=== PATIENT | male | born 1955 | race Caucasian/White ===

== ENCOUNTER → 2016-09-24 | Outpatient (CLI) | payer MEDICARE ==
[~2016-09-24] MED LIST: ACIDOPHILUS W/P1 CAP PO; AMARYL2 MG PO; AMLODIPINE10 MG PO; ASPIRIN ENTERIC81 M1 PO; ATORVASTATIN CA80 M1 PO; AUGMENTIN XR 101 TE2 PO; CEFADROXIL500 M1 PO; CEFTRIAXONE1 GM IJ; CIPROFLOXACIN500 M4 PO; DECADRON4 M1 PO; FLOMAX0.4 MG PO; FLUCONAZOLE100 MG PO; FOLIC ACID1 MG PO; GABAPENTIN100 M2 PO; GLUCOPHAGE1000 MG PO; GLYBURIDE5 MG PO; HUMALOG100 U/ML SC; HYDROCORTISONE30 G2 T; HYDROXYZINE HCL10 MG PO; LANTUS100 U/ML SC; LIPITOR80 MG PO; LISINOPRIL10 M1 PO; Lipitor PO; METFORMIN1000 MG PO; VIBRAMYCIN100 MG PO; VITAMIN B-11 TAB PO; VITAMIN D50000 I3 PO
[2016-09-24 12:46] LABS: ALBUMIN 3.7 gm/dl (3.1-4.5); ALKALINE PHOSPHATASE 63 U/L (45-117); BILIRUBIN, DIRECT < 0.1 mg/dL (0.0-0.2); BUN 22 mg/dl (7-24); CARBON DIOXIDE 28 mmol/L (21-32); CHLORIDE 100 mmol/L (98-107); EST GLOM FILT AFRICAN AMERICAN > 60 ml/min; GLUCOSE 96 mg/dL (65-99); POTASSIUM 4.6 mmol/L (3.5-5.1); SGOT/AST 13 IU/L (3-35); SGPT/ALT 24 U/L (12-78); SODIUM 138 mmol/L (136-145); TOTAL PROTEIN 8.3 gm/dL (6.4-8.2)
[2016-09-24 12:47] LABS: BILIRUBIN, TOTAL 0.3 mg/dl (0.2-1.0)
[2016-09-24 12:51] LABS: HEMOGLOBIN A1c 9.4 % (4.8-5.6)
== END | disposition home or self-care (01) ==
LOC: LAB 11:44
PROVIDERS: Family Medicine
DX: E11.9 Type 2 diabetes mellitus without complications (principal)

== ENCOUNTER → 2016-12-30 | Outpatient (CLI) | payer MEDICARE ==
[2016-12-30 11:47] LABS: HEMATOCRIT 39.8 % (42.0-52.0); HEMOGLOBIN 13.2 g/dl (14.0-18.0); MEAN CELL VOLUME 85.8 fl (80.0-94.0); MEAN CORPUSCULAR HGB 28.4 pg (27.0-31.0); MEAN CORPUSCULAR HGB CONC 33.2 g/dl (33.0-37.0); MEAN PLATELET VOLUME 9.1 fl (9.6-12.3); PLATELET COUNT AUTOMATED 357 10*3/uL (130-400); RED BLOOD COUNT 4.64 10*6/uL (4.50-5.90); RED CELL DISTRI WIDTH 12.7 % (0-14.5); WHITE BLOOD COUNT 19.5 10*3/uL (4.8-10.8)
[2016-12-30 12:06] LABS: BASOPHIL # 0.2 10*3/uL (0-0.1); BASOPHILS 1 % (0-1); EOSINOPHIL # 0.2 10*3/uL (0-0.4); EOSINOPHILS 1 % (1-4); LYMPHOCYTE # 10.5 10*3/uL (1.3-4.4); MONOCYTE # 0.6 10*3/uL (0.1-1.0); NEUTROPHILS 41 % (47-73); TOTAL CELLS COUNTED 100 #CELLS
[2016-12-30 12:07] LABS: OVALOCYTES FEW; PLATELET SUFFICIENCY NORMAL (NORMAL); ROULEAUX MODERATE
== END | disposition home or self-care (01) ==
LOC: LAB 11:26
PROVIDERS: Family Medicine
DX: L03.114 Cellulitis of left upper limb (principal)

== ENCOUNTER 2017-03-01 12:59 | Inpatient (IN) | payer MEDICARE ==
[~2017-03-01] VITALS: Ht 175.3 cm; Wt 104.8 kg
[2017-03-01] VITALS (9 sets, daily range): BP systolic 143–185; BP diastolic 74–102
[2017-03-01 13:27] LABS: HEMATOCRIT 37.4 % (42.0-52.0); HEMOGLOBIN 12.6 g/dl (14.0-18.0); MEAN CELL VOLUME 85.2 fl (80.0-94.0); MEAN CORPUSCULAR HGB 28.7 pg (27.0-31.0); MEAN CORPUSCULAR HGB CONC 33.7 g/dl (33.0-37.0); MEAN PLATELET VOLUME 9.4 fl (9.6-12.3); PLATELET COUNT AUTOMATED 294 10*3/uL (130-400); RED BLOOD COUNT 4.39 10*6/uL (4.50-5.90); RED CELL DISTRI WIDTH 13.3 % (0-14.5); WHITE BLOOD COUNT 17.7 10*3/uL (4.8-10.8)
[2017-03-01 13:36] LABS: ACT PARTIAL THROMBO TIME 28.3 SECONDS (20.8-31.5); INTERNATIONAL NORM RATIO 1.3 (2.0-3.5)
[2017-03-01 13:45] LABS: ALKALINE PHOSPHATASE 101 U/L (45-117); BUN 17 mg/dl (7-24); CHLORIDE 95 mmol/L (98-107); CPK 45 U/L (39-308); CREATININE 1.31 mg/dL (0.70-1.30); MAGNESIUM 2.1 mg/dL (1.5-2.1); POTASSIUM 4.5 mmol/L (3.5-5.1); SGOT/AST 14 IU/L (3-35); SGPT/ALT 18 U/L (12-78); SODIUM 132 mmol/L (136-145); TOTAL PROTEIN 9.2 gm/dL (6.4-8.2)
[2017-03-01 13:46] LABS: PLATELET SUFFICIENCY NORMAL (NORMAL); ROULEAUX MODERATE; TOTAL CELLS COUNTED 100 #CELLS
[2017-03-01 13:48] LABS: POLYCHROMASIA SLIGHT; TOXIC GRANULATION SLIGHT; TROPONIN I < 0.015 ng/ml (<0.045)
[2017-03-01 14:06] LABS: BILIRUBIN NEGATIVE (NEGATIVE); BLOOD 3+ (NEGATIVE); CLARITY CLOUDY (CLEAR); COLOR YELLOW (YELLOW); GLUCOSE 3+ (NEGATIVE); KETONE 1+ (NEGATIVE); LEUKO ESTERASE 2+ (NEGATIVE); NITRITE POSITIVE (NEGATIVE); SPECIFIC GRAVITY >= 1.030 (1.005-1.030)
[2017-03-01 14:18] LABS: RBC TNTC rbc/hpf (0-2)
--- NOTE | 2017-03-01 14:20 | NUR ---
OFFERS NO COMPLAINTS. TV PUT IN REACH REQUESTED.
--- NOTE | 2017-03-01 16:07 | NUR ---
SUPRAPUBIC CATH CHANGED BY DR KOENIG. SAVANNAH YANG RN
--- NOTE | 2017-03-01 16:30 | NUR ---
A 61, admitted to , under the services of MAXX Bello DO with a diagnosis of WEAKNESS,UTI. Chief complaint is FOUND AT HOME IN CHAIR, UNABLE TO AMBULATE. Patient arrived via ambulance from ER. Monitor applied. Initial assessment completed. Vital signs taken and recorded. MAXX BELLO DO notified of admission to the unit. Orders received. See assessment for past medical history, medications and allergies. Patient and/or family oriented to unit. [facility] visitation policy reviewed. Clothing/patient valuable form completed. SHIRAZ GILBERT
[2017-03-01] MEDS ORDERED: GLIPIZIDE5 MG PO (17:46)
[2017-03-01] MEDS ORDERED: LIPITOR80 MG PO (17:47)
--- NOTE | 2017-03-01 17:48 | NUR ---
MED REC UP TO DATE FROM [facility]
--- NOTE | 2017-03-01 18:01 | NUR ---
MEDICATED WITH MORPHINE 2MG IV FOR COMPLAINTS OF LEFT LEG PAIN. RATES PAIN AN 8 ON A PAIN SCALE OF 1-10.
--- NOTE | 2017-03-01 18:47 | NUR ---
CALLING OUT REQUESTING MORE PAIN MED'S. VOICES THAT MORPHINE WAS NOT EFFECTIVE. DR. DIEGO NOTIFIED AND NO NEW ORDERS RECEIVED.
--- NOTE | 2017-03-01 20:05 | NUR ---
MEDICATED WITH NORCO FOR C/O LEFT LEG PAIN.
--- NOTE | 2017-03-01 22:23 | NUR ---
MEDICATED WITH MS SLOW IV PUSH FOR C/O LEFT KNEE PAIN RATED A 7/10.
[2017-03-02] VITALS: BP 153/74
--- NOTE | 2017-03-02 00:24 | NUR ---
DR. DUONG NOTIFIED OF PT LLE RED/WARM/EDEMA/PAIN/NUMBNESS. N.O. RCVD TO OBTAIN US OF LLE TO R/O DVT.
--- NOTE | 2017-03-02 01:00 | NUR ---
PT RESTING QUIETLY IN BED. PAIN MED EFFECTIVE. NO FURTHER C/O VOICED.
--- NOTE | 2017-03-02 04:21 | NUR ---
24 HR chart check completed.
[2017-03-02 06:27] LABS: HEMATOCRIT 32.5 % (42.0-52.0); HEMOGLOBIN 10.9 g/dl (14.0-18.0); MEAN CELL VOLUME 84.9 fl (80.0-94.0); MEAN CORPUSCULAR HGB 28.5 pg (27.0-31.0); MEAN CORPUSCULAR HGB CONC 33.5 g/dl (33.0-37.0); MEAN PLATELET VOLUME 9.7 fl (9.6-12.3); PLATELET COUNT AUTOMATED 255 10*3/uL (130-400); RED BLOOD COUNT 3.83 10*6/uL (4.50-5.90); RED CELL DISTRI WIDTH 13.4 % (0-14.5); WHITE BLOOD COUNT 15.6 10*3/uL (4.8-10.8)
[2017-03-02 06:49] LABS: ALBUMIN 2.4 gm/dl (3.1-4.5); ALKALINE PHOSPHATASE 77 U/L (45-117); BUN 12 mg/dl (7-24); CHLORIDE 100 mmol/L (98-107); CHOLESTEROL 100 mg/dL (<200); CREATININE 0.82 mg/dL (0.70-1.30); FREE T4 1.34 ng/dl (0.76-1.46); HDL CHOLESTEROL 33 mg/dl (40-60); LDL CHOLESTEROL 56 mg/dL (9-159); MAGNESIUM 1.9 mg/dL (1.5-2.1); PHOSPHOROUS 2.5 mg/dL (2.5-4.9); SGOT/AST 10 IU/L (3-35); SGPT/ALT 12 U/L (12-78); SODIUM 133 mmol/L (136-145); TOTAL PROTEIN 7.5 gm/dL (6.4-8.2); TRIGLYCERIDES 55 mg/dl (<150); VLDL CHOLESTEROL 11 mg/dL (6-40)
--- NOTE | 2017-03-02 06:52 | NUR ---
DR. DIEGO NOTIFIED OF LEFT KNEE PAIN/SWELLING. N.O. VD FOR 3 VIEW XRAY OF LEFT KNEE.
[2017-03-02 06:54] LABS: BASOPHILS 2 % (0-1); PLATELET SUFFICIENCY NORMAL (NORMAL); THYROID STIM HORMONE (HS) 0.977 uIU/ml (0.358-4.75); TOTAL CELLS COUNTED 100 #CELLS
[2017-03-02 08:00] VITALS: BP 107/67
[2017-03-02 08:07] LABS: VITAMIN D, 25-HYDROXY 24.2 ng/mL (30-100)
--- NOTE | 2017-03-02 09:15 | NUR ---
MORPHINE GIVEN FOR C/O LT KNEE PAIN. RATES 10/10 ON PAIN SCALE. WILL MONITOR.
--- NOTE | 2017-03-02 09:30 | NUR ---
Body Sander in to talk to patient. Patient states lives at home with alone. There are few steps in the home. Physician: silvia gutierrez [facility] [place] [facility] Patient's level of ADLs: INDEPENDENT Patient has working utilities: all working DME: cane Follow-up physician's appointment after d/c: will be made by hospitalist nurse director upon discharge Does patient want to access PORTAL?: no Discharge plan discussed with patient, patient lives at home alone, occasionally uses a cane for ambulation, was independent in adls, but is having some difficulty with ambulation and adls at present time, discussed a short term halfway for rehab prior to going back home and patient was receptive, environmental restoration planner has visited with patient and he is thinking about which facility he wants to go to, case management will follow. BARAK CONLEY
--- NOTE | 2017-03-02 09:31 | NUR ---
Received order for skilled facility rehab. senior customer service representative in to talk to patient and provide list of facilities. Patient stated he wanted to talk to his ex prior to making the decision of which facility. Will follow up later this afternoon.
--- NOTE | 2017-03-02 10:15 | NUR ---
PHYSICAL THERAPY PAtient evaluated on 4, full evaluation to follow. Continue with PT as per plan of care with fall, severe pain left LE, Bakers cycst left LE and acute debility. Will require SNF for severe pain and impaired mobility prior to returning to home alone at [facility]. PAtient is moderate complexity via chart review, tests and evaluation: 21984. Thank you for this referral. Balbina Graham,PT
--- NOTE | 2017-03-02 10:30 | NUR ---
MORPHINE EFFECTIVE PER PT.
--- NOTE | 2017-03-02 11:25 | NUR ---
Patient has requested to be referred to the [facility]. Will contact C[facility] and fax referral.
[2017-03-02 12:00] VITALS: BP 169/94
--- NOTE | 2017-03-02 12:58 | NUR ---
PHYSICAL THERAPY Mr Yuen was seen this PM 1:1 for his physical therapy session. Pt having C/O severy left knee pain, bakers cycst, and having acute debility. With just slight touch, Pt having 10/10 pain and ask if i could come back tomorrow due to the pain he was having. Really did not get anything done due to Pt's left knee pain, will come back tomorrow. KILLIAN BRITO SHERIFFS.
[2017-03-02 16:00] VITALS: BP 146/77
[2017-03-02 20:00] VITALS: BP 136/80
--- NOTE | 2017-03-02 22:41 | NUR ---
PT. RECIEVED A PRN NORCO FOR PAIN IN THE LEFT KNEE.
--- NOTE | 2017-03-02 23:11 | NUR ---
PT. DENIES ANY PAIN AT THIS TIME.
--- NOTE | 2017-03-02 23:15 | NUR ---
PRN RESTORIL GIVEN FOR INSOMNIA.
--- NOTE | 2017-03-02 23:45 | NUR ---
PT. RESTING COMFORTABLY.
[2017-03-03] VITALS: BP 137/76
--- NOTE | 2017-03-03 01:30 | NUR ---
PT WOKE UP AT THIS TIME, SOMEWHAT CONFUSED. PATIENT REORIENTED AT THIS TIME. WAS UNSURE OF PLACE. STATED THAT HE FEELS LIKE HE WAS "DRUGGED". THIS NURSE STATED THAT HE REQUESTED A SLEEPING PILL LAST NIGHT. HE STATED THAT HE FORGOT WHERE HE WAS FOR A MINUTE. PATIENT ACCIDENTALLY TOOK IV OUT IN SLEEP. #22 GAUGE RESTARTED IN THE RIGHT AC. IV FUIDS CONTINUE TO INFUSE. PATIENT STATES HE IS GOING TO GO BACK TO SLEEPING. CALL LIGHT WITHIN REACH, WILL MONITOR
--- NOTE | 2017-03-03 04:04 | NUR ---
PRN TYLENOL 650MG GIVEN TO PT. FOR MILD PAIN IN LEFT KNEE RATING PAIN A 5 OUT OF 10.
[2017-03-03 05:59] LABS: HEMATOCRIT 33.1 % (42.0-52.0); HEMOGLOBIN 11.1 g/dl (14.0-18.0); MEAN CELL VOLUME 84.9 fl (80.0-94.0); MEAN CORPUSCULAR HGB 28.5 pg (27.0-31.0); MEAN CORPUSCULAR HGB CONC 33.5 g/dl (33.0-37.0); MEAN PLATELET VOLUME 9.7 fl (9.6-12.3); PLATELET COUNT AUTOMATED 264 10*3/uL (130-400); RED CELL DISTRI WIDTH 13.5 % (0-14.5); WHITE BLOOD COUNT 15.9 10*3/uL (4.8-10.8)
[2017-03-03 06:26] LABS: BUN 10 mg/dl (7-24); CHLORIDE 100 mmol/L (98-107); CREATININE 0.77 mg/dL (0.70-1.30); POTASSIUM 3.6 mmol/L (3.5-5.1); SODIUM 133 mmol/L (136-145)
[2017-03-03 06:54] LABS: PLATELET SUFFICIENCY NORMAL (NORMAL); ROULEAUX SLIGHT; TOTAL CELLS COUNTED 100 #CELLS
[2017-03-03 08:00] VITALS: BP 144/86
--- NOTE | 2017-03-03 09:00 | NUR ---
estate planner is working on discharge arrangements with patient
--- NOTE | 2017-03-03 09:55 | NUR ---
PT REQUESTING PRN PO NORCO FOR COMPLAINTS OF LEFT KNEE PAIN, RATING PAIN AT 9/10. WILL MONITOR EFFECTIVENESS.
--- NOTE | 2017-03-03 11:00 | NUR ---
PT STATES NORCO INEFFECTIVE
--- NOTE | 2017-03-03 11:21 | NUR ---
PT BS 310
--- NOTE | 2017-03-03 11:21 | NUR ---
PT GIVEN PRN IV MORPHINE FOR COMPLAINTS OF LEFT KNEE PAIN, RATING PAIN AT 9/10. WILL MONITOR EFFECTIVENESS.
[2017-03-03 12:00] VITALS: BP 149/92
--- NOTE | 2017-03-03 12:00 | NUR ---
PT STATES MORPHINE EFFECTIVE FOR PAIN
--- NOTE | 2017-03-03 12:38 | NUR ---
PHYSICAL THERAPY For C/O left knee pain Pt had tylenol 650 mg around 4:00 AM, Then later in the morning IV morphine. Pt seen this PM 1:1 for his therapy session. Pt had very slow, working left knee into extension and ending up around -11,12 d extension is all i could get at this time. Dr Aldana in at this time and going to drain fluid from Pt left knee. KILLIAN BRITO RAILROAD BRAKE OPERATOR.
--- NOTE | 2017-03-03 12:55 | NUR ---
DR DORANTES AT BEDSIDE TO PERFORM ASPIRATION TO LEFT KNEE. PATIENT TOLERATED PROCEDURE. SYNOVIAL FLUIDS SENT TO LAB, 70CC REMOVED.
[2017-03-03 14:31] LABS: BF LYMPHOCYTES 11 %; BF MONOCYTES 2 %; BF NEUTROPHILS 87 %
[2017-03-03 14:34] LABS: BODY FLUID WBC 18425 /uL
--- NOTE | 2017-03-03 14:50 | NUR ---
Shift chart check completed.
[2017-03-03 16:00] VITALS: BP 137/79
--- NOTE | 2017-03-03 19:22 | NUR ---
MEDICATED WITH NORCO FOR LEFT KNEE PAIN. 01/12 NOW
[2017-03-03 20:00] VITALS: BP 158/94
--- NOTE | 2017-03-03 20:00 | NUR ---
ASSUMED CARE OF PATIENT. ASSESSMENT COMPLETE. RESTING IN BED. VISITORS AT BEDSIDE. CALL LIGHT IN REACH. WILL CONTINUE TO MONITOR.
--- NOTE | 2017-03-03 22:51 | NUR ---
DAILY MED REC UNABLE OT BE COMPLETED PATIENT DOES NOT KNOW ALL OF HIS HOME MEDICATIONS
--- NOTE | 2017-03-03 23:06 | NUR ---
MEDICATED WITH PRN MORPHINE FOR C/O LT KNEE PAIN 03/15
[2017-03-04] VITALS: BP 136/81
--- NOTE | 2017-03-04 | NUR ---
PER PATIENT, EARLIER MORPHINE EFFECTIVE
--- NOTE | 2017-03-04 01:58 | NUR ---
MEDICATED WITH PRN NORCO FOR C/O LEFT KNEE PAIN. RATES 02/12
--- NOTE | 2017-03-04 03:00 | NUR ---
EARLIER NORCO APPEARS TO BE EFFECTIVE, PT SLEEPING. NO DISTRESS NOTED. CALL LIGHT IN REACH. WILL CONTINUE TO MONITOR.
--- NOTE | 2017-03-04 05:04 | NUR ---
MEDICATED WITH PRN MORPHINE FOR C/O LEFT KNEE PAIN. RATES 03/15
--- NOTE | 2017-03-04 06:42 | NUR ---
Shift chart check completed.
[2017-03-04 07:03] LABS: HEMATOCRIT 32.5 % (42.0-52.0); HEMOGLOBIN 10.9 g/dl (14.0-18.0); MEAN CORPUSCULAR HGB 28.8 pg (27.0-31.0); MEAN CORPUSCULAR HGB CONC 33.5 g/dl (33.0-37.0); MEAN PLATELET VOLUME 9.7 fl (9.6-12.3); PLATELET COUNT AUTOMATED 280 10*3/uL (130-400); RED BLOOD COUNT 3.78 10*6/uL (4.50-5.90); RED CELL DISTRI WIDTH 13.8 % (0-14.5)
[2017-03-04 07:32] LABS: CHLORIDE 99 mmol/L (98-107); POTASSIUM 3.8 mmol/L (3.5-5.1); SODIUM 134 mmol/L (136-145)
[2017-03-04 07:34] LABS: PLASMA CELL 1 % (0-0); TOTAL CELLS COUNTED 100 #CELLS
[2017-03-04 07:35] LABS: PLATELET SUFFICIENCY NORMAL (NORMAL); ROULEAUX MODERATE
[2017-03-04 07:45] LABS: BUN 10 mg/dl (7-24); CREATININE 0.86 mg/dL (0.70-1.30)
--- NOTE | 2017-03-04 07:50 | NUR ---
[place] given for c/o severe pain to left knee. 10/[address] Aldana for Cortisone injection. IV to RAN secure & patent. Suprapubic catheter secure. Voids in urinal normally. Follows up for suprapubic catheter around May. Edema to BLL L>R.
[2017-03-04 08:00] VITALS: BP 122/78
--- NOTE | 2017-03-04 09:44 | NUR ---
PHYSICAL THERAPY Jerry seen this AM 1:1 for his physical therapy treatment. Pt was medicated with morphine this AM, C/O left knee pain 03/15. Start with rom to pt's pain tolerance to left LE, knee working knee extension to pt's pain tolerance taking 20 min to get around -9d extension. Followed by transfer supine/sit very slow with MOD A X 1, up into sitting balance. Followed by sit/stand and up on wheeled walker standing balance MAX A X 1, and stand to tolerance, then back supine with pain. Pt with call light resting, treatment time 35 min. KILLIAN BRITO RECORDING STUDIO INTERN.
--- NOTE | 2017-03-04 09:56 | NUR ---
PAIN IMPROVED BUT STILL THERE NOW 5-12/13. PT MOVING ABOUT IN BED INDEPENDENTLY
[2017-03-04 12:00] VITALS: BP 118/65
--- NOTE | 2017-03-04 12:05 | NUR ---
MORPHINE GIVEN AT 1145. BED CHANGED AFTER MUCH ENCOURAGEMENT. DR DORANTES ARRIVED AND INJECTION GIVEN. PT TOLERATED WELL BUT WAS ALREADY IN PAIN. PATIENT TOLD BY DR DORANTES THAT THE KNEE HAS NO INFECTION BUT IS POSITIVE FOR GOUT
[2017-03-04 13:09] LABS: ACID FAST SMEAR Negative (.); ACID FAST SPEC PROCESSING Concentration (.)
--- NOTE | 2017-03-04 14:02 | NUR ---
Occupational Therapy evaluation offered this date to patient. He was sitting up in bed eating lunch. He c/o pain and indicated that "he had several shots in his knee "today and he was not getting out of bed. OTR will recheck at a later date. Thank you for this referral. Love Broussard OTR/ace
[2017-03-04 14:16] LABS: HEMATOCRIT 36.4 % (42.0-52.0); HEMOGLOBIN 12.1 g/dl (14.0-18.0); MEAN CELL VOLUME 85.6 fl (80.0-94.0); MEAN CORPUSCULAR HGB 28.5 pg (27.0-31.0); MEAN CORPUSCULAR HGB CONC 33.2 g/dl (33.0-37.0); MEAN PLATELET VOLUME 9.6 fl (9.6-12.3); PLATELET COUNT AUTOMATED 305 10*3/uL (130-400); RED BLOOD COUNT 4.25 10*6/uL (4.50-5.90); RED CELL DISTRI WIDTH 13.6 % (0-14.5); WHITE BLOOD COUNT 20.3 10*3/uL (4.8-10.8)
[2017-03-04 14:58] LABS: PLASMA CELL 1 % (0-0); PLATELET SUFFICIENCY NORMAL (NORMAL); ROULEAUX MODERATE; TOTAL CELLS COUNTED 100 #CELLS
[2017-03-04 16:00] VITALS: BP 148/87
--- NOTE | 2017-03-04 19:00 | NUR ---
PT. SLEEPING UPON ENTERING ROOM, GLASSES ON BEDSIDE TABLE. ALERT AND ORIENTED UPON AWAKENING. LUNG SOUNDS DIMINISHED AND CLEAR ON ROOM AIR. S1S2 HEART SOUNDS, NSR @ 99 BPM, PPP, NO EDEMA. BOWEL SOUNDS NORMOACTIVE X 4 QUADS. AT BEDSIDE. DRESSING TO LEFT KNEE CLEAN, DRY AND INTACT AT THIS TIME. PT. DENIES PAIN AT THIS TIME. CALL LIGHT WITHIN REACH, BED IN LOWEST POSITION, WHEELS LOCKED.
--- NOTE | 2017-03-04 20:35 | NUR ---
PT. SO APPROACHED THE DESK STATING THAT THE PT. WOKE UP AND WAS CONFUSED AND NOT SURE WHERE HE WAS AT. PT. WAS ASSESSED AND WAS ABLE TO STATE WHERE HE WAS AT, THE DATE, HIS NAME, AND THE CURRENT PRESIDENT. CALL LIGHT WITHIN REACH, BED IN LOWEST POSITION, AND WHEELS LOCKED.
--- NOTE | 2017-03-04 21:51 | NUR ---
PT. GIVEN NORCO 325MG FOR GENERALIZED PAIN OF 6/10 ON 0-10 SCALE. CALL LIGHT WITHIN REACH, BED IN LOWEST POSITION, WHEELS LOCKED.
[2017-03-05] VITALS: BP 131/56
--- NOTE | 2017-03-05 | NUR ---
ASSUMED CARE OF PATIENT. ASSESSMENT COMPLETE. RESTING IN BED. DENIES FURTHER NEEDS AT THIS TIME. CALL LIGHT IN REACH. WILL CONTINUE TO MONITOR.
--- NOTE | 2017-03-05 02:00 | NUR ---
SLEEPING. RESP EASY AND NONLABORED ON ROOM AIR. NO DISTRESS NOTED. CM INTACT. CALL LIGHT IN REACH. WILL CONTINUE TO MONITOR.
[2017-03-05 05:46] LABS: HEMATOCRIT 35.5 % (42.0-52.0); HEMOGLOBIN 11.8 g/dl (14.0-18.0); MEAN CELL VOLUME 84.1 fl (80.0-94.0); MEAN CORPUSCULAR HGB CONC 33.2 g/dl (33.0-37.0); MEAN PLATELET VOLUME 9.6 fl (9.6-12.3); PLATELET COUNT AUTOMATED 277 10*3/uL (130-400); RED BLOOD COUNT 4.22 10*6/uL (4.50-5.90); RED CELL DISTRI WIDTH 13.6 % (0-14.5); WHITE BLOOD COUNT 20.3 10*3/uL (4.8-10.8)
[2017-03-05 05:56] LABS: ALKALINE PHOSPHATASE 82 U/L (45-117); BUN 16 mg/dl (7-24); CHLORIDE 99 mmol/L (98-107); POTASSIUM 4.1 mmol/L (3.5-5.1); SGOT/AST 13 IU/L (3-35); SGPT/ALT 15 U/L (12-78); SODIUM 135 mmol/L (136-145); TOTAL PROTEIN 8.1 gm/dL (6.4-8.2)
[2017-03-05 06:09] LABS: TOTAL PROTEIN, SERUM 7.6 g/dL (6.0-8.5)
[2017-03-05 06:14] LABS: TOTAL CELLS COUNTED 100 #CELLS
[2017-03-05 06:15] LABS: PLATELET SUFFICIENCY NORMAL (NORMAL); ROULEAUX MODERATE; TOXIC GRANULATION MODERATE
--- NOTE | 2017-03-05 06:35 | NUR ---
MEDICATED WITH PRN NORCO FOR C/O LT KNEE PAIN. RATES 04/14
[2017-03-05 08:00] VITALS: BP 150/88
--- NOTE | 2017-03-05 10:31 | NUR ---
patient will be going to [facility] today, digital media planner will make arrangements
--- NOTE | 2017-03-05 11:08 | NUR ---
PHYSICAL THERAPY Jerry seen this AM 1:1 for his therapy session and having some improvement in pain and rom left LE, knee. Start with rom to left LE knee, knee extension first, into flexion, SLR with improvement in knee extension to - 7. Followed by transfer supine/sit very slow with MOD A X 1, up into sitting, sitting balance. Followed by sit/stand up on wheeled walker for standing balance MOD A X 1, and said that standing really feels good to stand. Stand to tolerance, then back sitting, followed by back supine MOD A X 2, and working act ankle pumps, quad sets. Treatment time 30 min. KILLIAN BRITO ANALYSIS LEAD.
[2017-03-05] MEDS ORDERED: ALLOPURINOL100 MG PO (11:21)
[2017-03-05] MEDS ORDERED: LISINOPRIL10 M1 PO (11:21)
[2017-03-05] MEDS ORDERED: VITAMIN D-32000 UNI1 PO (11:22)
[2017-03-05] MEDS ORDERED: TETRACYCLINE H500 MG PO (11:26)
[2017-03-05] MEDS ORDERED: LEVOFLOXACIN500 MG PO (11:26)
[2017-03-05 12:00] VITALS: BP 126/80
--- NOTE | 2017-03-05 12:02 | NUR ---
Patient being discharged to [facility], transportation scheduled for 3:30 PM with [facility]. NH, nursing and family notified.
--- NOTE | 2017-03-05 14:00 | NUR ---
PHYSICAL THERAPY CO-SIGN I approve of the Phyical Therapy notes written above. BARBARA TURNER PT
--- NOTE | 2017-03-05 15:09 | NUR ---
REPORT CALLED TO MONIQUE AT [facility].
--- NOTE | 2017-03-05 15:30 | NUR ---
Discharge instructions reviewed with patient/family. Patient receptive and verbalizes understanding. Follow-up care arranged. Written instructions given to patient/family. PT LEFT VIA AMBULANCE FOR ORCHARDS. YOLANDA HINTON
[2017-03-05 16:09] LABS: A/G RATIO 0.5 (0.7-1.7); ALBUMIN 2.6 g/dL (2.9-4.4); ALPHA-1-GLOBULIN 0.5 g/dL (0.0-0.4); ALPHA-2-GLOBULIN 1.1 g/dL (0.4-1.0); BETA GLOBULIN 1.6 g/dL (0.7-1.3); GAMMA GLOBULIN 1.8 g/dL (0.4-1.8); M-SPIKE Not Observed g/dL (Not Observed)
== END 2017-03-05 15:30 | disposition other institution (70) | DRG 698 ==
LOC: ED 12:59 → 4E 15:21 → EDHOLD 15:21 → 4E 15:41
PROVIDERS: Emergency Medicine; Family Medicine; Internal Medicine; ADMIT Internal Medicine
PROC: 0S9D3ZX Drainage of Left Knee Joint, Percutaneous Approach, Diagnostic (ICD-10-PCS; principal; 2017-03-03)
PROC: 3E0U3KZ Introduction of Other Diagnostic Substance into Joints, Percutaneous Approach (ICD-10-PCS; 2017-03-04)
DX: T83.511A Infection and inflammatory reaction due to indwelling urethral catheter, initial encounter (principal); A41.9 Sepsis, unspecified organism; N17.0 Acute kidney failure with tubular necrosis; C91.10 Chronic lymphocytic leukemia of B-cell type not having achieved remission; E11.9 Type 2 diabetes mellitus without complications; D64.9 Anemia, unspecified; E44.1 Mild protein-calorie malnutrition; E87.1 Hypo-osmolality and hyponatremia; I16.1 Hypertensive emergency; N39.0 Urinary tract infection, site not specified; R33.9 Retention of urine, unspecified; I10 Essential (primary) hypertension; I25.10 Atherosclerotic heart disease of native coronary artery without angina pectoris; E55.9 Vitamin D deficiency, unspecified; E78.1 Pure hyperglyceridemia; M10.9 Gout, unspecified; E66.9 Obesity, unspecified; Z60.2 Problems related to living alone; M25.462 Effusion, left knee; Z96.643 Presence of artificial hip joint, bilateral; M71.22 Synovial cyst of popliteal space [Baker], left knee; Z93.59 Other cystostomy status; Z68.34 Body mass index [BMI] 34.0-34.9, adult; Z86.73 Personal history of transient ischemic attack (TIA), and cerebral infarction without residual deficits; I25.2 Old myocardial infarction; Z79.4 Long term (current) use of insulin; Z72.89 Other problems related to lifestyle; Z81.8 Family history of other mental and behavioral disorders; Z87.891 Personal history of nicotine dependence

== ENCOUNTER → 2017-06-02 | Outpatient (CLI) | payer MEDICARE ==
[~2017-06-02] MED LIST changes: +ALLOPURINOL100 MG PO; +GLIPIZIDE5 MG PO; +LEVOFLOXACIN500 MG PO; +TETRACYCLINE H500 MG PO; +VITAMIN D-32000 UNI1 PO
== END | disposition home or self-care (01) ==
LOC: LAB 15:42
DX: E55.9 Vitamin D deficiency, unspecified (principal)

== ENCOUNTER 2017-07-11 02:07 | Inpatient (IN) | payer MEDICARE ==
[~2017-07-11] VITALS: Ht 175.2 cm; Wt 111.2 kg
[2017-07-11] VITALS (27 sets, daily range): BP systolic 94–185; BP diastolic 26–126
--- NOTE | ~2017-07-11 | EKG ---
[place], [place] ELECTROCARDIOGRAM REPORT NAME: RAMSEY LEON UNIT #: [id number] ROOM: 411 DOCTOR: MARTA WRIGHT MD BIRTHDATE: [birth year] DOS: 07/14/2017 IMPRESSION: Sinus rhythm, LVH with repolarization changes. Abnormal ECG. Marta Wright MD CM:EKGRPT:ELECTROCARDIOGRAM REPORT [phone] MARTA WRIGHT MD
--- NOTE | ~2017-07-11 | PR ---
[place], [place] PROGRESS NOTE NAME: RAMSEY LEON UNIT #: [id number] ROOM: 411 DOCTOR: LOC THOMPSON MD BIRTHDATE: [birth year] DOS: 07/13/2017 CARDIOLOGY PROGRESS NOTE SUBJECTIVE: The patient was seen in the cardiology department today 07/13/2017 just prior to his stress test. He is a 61-year-old man who was admitted to the hospital on 07/11/2017 with hypothermia and complaints of pain radiating into his left chest. He was found asleep in his car in the ER parking lot after drinking heavily. On arrival, his rectal temperature was 93.4. He was rewarmed and we were asked to assess his cardiac status. Since admission, he has had an elevated white count, but he does have a history of chronic lymphocytic leukemia. He has normal hemoglobin at 13.7. Renal functions are normal. Lactic acid was elevated at 2.7 on admission. Troponin was elevated at 0.123. followup troponin levels were 0.137 and 0.102. The patient tells me that he believes his chest hurt because he fell. PHYSICAL EXAMINATION: VITAL SIGNS: Today, his pulse is 80 and regular, blood pressure is 133/75. He is afebrile. He weighs 111.2 kilograms with a body mass index of 36.2. HEENT: Normocephalic and atraumatic. NECK: Supple. He has no jugular distention. Carotids are full without bruits. LUNGS: Respirations are unlabored. His chest has decreased breath sounds at the bases, but no wheezes or rales. HEART: Has a regular rhythm with an S4 gallop, but no S3. ABDOMEN: Soft and normally active. EXTREMITIES: Showed no edema. Peripheral pulses are palpable in the feet. IMPRESSION: 1. Hypothermia. 2. Acute and chronic alcohol intoxication. 3. Elevated troponin, most likely this is due to poor tissue perfusion from hypothermia rather than an acute coronary event. PLAN: We will proceed with a pharmacologic stress test to further assess his cardiac function and perfusion. Further recommendations depend upon the results of the stress test. I thank the hospitalist physicians for asking our advice regarding his care. [place], [place] PROGRESS NOTE NAME: RAMSEY LEON UNIT #: [id number] ROOM: 411 DOCTOR: LOC THOMPSON MD BIRTHDATE: [birth year] LOC THOMPSON MD CM:PNTRANS [id number] LOC THOMPSON MD 07/13/17 1148 interface
[2017-07-11 02:28] LABS: HEMATOCRIT 43.3 % (42.0-52.0); HEMOGLOBIN 14.4 g/dl (14.0-18.0); MEAN CELL VOLUME 85.7 fl (80.0-94.0); MEAN CORPUSCULAR HGB 28.5 pg (27.0-31.0); MEAN CORPUSCULAR HGB CONC 33.3 g/dl (33.0-37.0); MEAN PLATELET VOLUME 9.8 fl (9.6-12.3); PLATELET COUNT AUTOMATED 280 10*3/uL (130-400); RED BLOOD COUNT 5.05 10*6/uL (4.50-5.90); RED CELL DISTRI WIDTH 13.2 % (0-14.5); WHITE BLOOD COUNT 25.6 10*3/uL (4.8-10.8)
[2017-07-11 02:42] LABS: ACT PARTIAL THROMBO TIME 22.5 SECONDS (20.8-31.5); INTERNATIONAL NORM RATIO 1.1 (2.0-3.5)
[2017-07-11 02:46] LABS: ALBUMIN 4.1 gm/dl (3.1-4.5); ALKALINE PHOSPHATASE 83 U/L (45-117); BUN 16 mg/dl (7-24); CHLORIDE 95 mmol/L (98-107); CREATININE 1.42 mg/dL (0.70-1.30); SGOT/AST 24 IU/L (3-35); SGPT/ALT 24 U/L (12-78); SODIUM 134 mmol/L (136-145); TOTAL PROTEIN 8.7 gm/dL (6.4-8.2)
[2017-07-11 02:47] LABS: TOTAL CELLS COUNTED 100 #CELLS
[2017-07-11 02:48] LABS: PLATELET SUFFICIENCY NORMAL (NORMAL); POLYCHROMASIA SLIGHT
[2017-07-11 02:50] LABS: TROPONIN I 0.123 ng/ml (<0.045)
[2017-07-11 04:36] LABS: BILIRUBIN NEGATIVE (NEGATIVE); BLOOD TRACE-INTACT (NEGATIVE); CLARITY SL CLOUDY (CLEAR); COLOR YELLOW (YELLOW); GLUCOSE 3+ (NEGATIVE); KETONE NEGATIVE (NEGATIVE); LEUKO ESTERASE TRACE (NEGATIVE); NITRITE POSITIVE (NEGATIVE); SPECIFIC GRAVITY <= 1.005 (1.005-1.030); UROBILINOGEN 0.2 E.U./dl (0.2-1.0)
[2017-07-11 04:46] LABS: BACTERIA 4+; WBC 21-30 wbc/hpf (0-5)
[2017-07-11 05:44] LABS: HEMATOCRIT 41.2 % (42.0-52.0); HEMOGLOBIN 14.3 g/dl (14.0-18.0); MEAN CELL VOLUME 84.6 fl (80.0-94.0); MEAN CORPUSCULAR HGB 29.4 pg (27.0-31.0); MEAN CORPUSCULAR HGB CONC 34.7 g/dl (33.0-37.0); PLATELET COUNT AUTOMATED 281 10*3/uL (130-400); RED BLOOD COUNT 4.87 10*6/uL (4.50-5.90); RED CELL DISTRI WIDTH 13.1 % (0-14.5); WHITE BLOOD COUNT 23.4 10*3/uL (4.8-10.8)
[2017-07-11 06:01] LABS: ALKALINE PHOSPHATASE 79 U/L (45-117); BUN 15 mg/dl (7-24); CHLORIDE 97 mmol/L (98-107); CHOLESTEROL 151 mg/dL (<200); HDL CHOLESTEROL 45 mg/dl (40-60); LDL CHOLESTEROL 84 mg/dL (9-159); PHOSPHOROUS 3.2 mg/dL (2.5-4.9); POTASSIUM 4.4 mmol/L (3.5-5.1); SGOT/AST 16 IU/L (3-35); SGPT/ALT 25 U/L (12-78); SODIUM 135 mmol/L (136-145); TOTAL PROTEIN 8.5 gm/dL (6.4-8.2); TRIGLYCERIDES 112 mg/dl (<150); VLDL CHOLESTEROL 22 mg/dL (6-40)
[2017-07-11 06:12] LABS: ATYPICAL LYMPHS 1 % (0-0); PLATELET SUFFICIENCY NORMAL (NORMAL); TOTAL CELLS COUNTED 100 #CELLS
[2017-07-11 06:22] LABS: INTERNATIONAL NORM RATIO 1.1 (2.0-3.5)
[2017-07-11 06:34] LABS: URINE AMPHETAMINES < 1000 (1000ng/ml); URINE BARBITURATES < 200 (200ng/ml); URINE BENZODIAZEPINES < 200 (200ng/ml); URINE CANNABINOIDS (THC) < 50 (50ng/ml); URINE COCAINE < 300 (300ng/ml); URINE METHADONE < 300 (300ng/ml); URINE OPIATES < 300 (300ng/ml)
[2017-07-11 06:36] LABS: URINE PHENCYCLIDINE < 25 (25ng/ml)
[2017-07-11 07:45] LABS: VITAMIN D, 25-HYDROXY 13.5 ng/mL (30-100)
[2017-07-11 08:28] LABS: CKMB 3.5 ng/ml (0.5-3.6)
[2017-07-12] VITALS: BP 150/82
[2017-07-12 04:00] VITALS: BP 154/90
[2017-07-12 05:55] LABS: HEMATOCRIT 40.2 % (42.0-52.0); HEMOGLOBIN 13.9 g/dl (14.0-18.0); MEAN CELL VOLUME 85.2 fl (80.0-94.0); MEAN CORPUSCULAR HGB 29.4 pg (27.0-31.0); MEAN CORPUSCULAR HGB CONC 34.6 g/dl (33.0-37.0); MEAN PLATELET VOLUME 9.9 fl (9.6-12.3); PLATELET COUNT AUTOMATED 255 10*3/uL (130-400); RED BLOOD COUNT 4.72 10*6/uL (4.50-5.90); RED CELL DISTRI WIDTH 13.1 % (0-14.5); WHITE BLOOD COUNT 19.8 10*3/uL (4.8-10.8)
[2017-07-12 06:05] LABS: BUN 9 mg/dl (7-24); CHLORIDE 98 mmol/L (98-107); CREATININE 0.93 mg/dL (0.70-1.30); POTASSIUM 4.1 mmol/L (3.5-5.1); SODIUM 135 mmol/L (136-145)
[2017-07-12 06:35] LABS: ATYPICAL LYMPHS 9 % (0-0); TOTAL CELLS COUNTED 100 #CELLS
[2017-07-12 06:38] LABS: PLATELET SUFFICIENCY NORMAL (NORMAL)
[2017-07-12 10:16] VITALS: BP 160/84
[2017-07-12 12:02] VITALS: BP 155/90
[2017-07-12 16:00] VITALS: BP 150/88
[2017-07-12 20:00] VITALS: BP 109/43
[2017-07-13] VITALS: BP 133/75
[2017-07-13 07:38] LABS: HEMATOCRIT 39.6 % (42.0-52.0); HEMOGLOBIN 13.7 g/dl (14.0-18.0); MEAN CORPUSCULAR HGB 29.4 pg (27.0-31.0); MEAN CORPUSCULAR HGB CONC 34.6 g/dl (33.0-37.0); MEAN PLATELET VOLUME 10.4 fl (9.6-12.3); PLATELET COUNT AUTOMATED 252 10*3/uL (130-400); RED BLOOD COUNT 4.66 10*6/uL (4.50-5.90); RED CELL DISTRI WIDTH 13.1 % (0-14.5); WHITE BLOOD COUNT 19.5 10*3/uL (4.8-10.8)
[2017-07-13 08:00] VITALS: BP 170/92
[2017-07-13 08:08] LABS: ALBUMIN 3.2 gm/dl (3.1-4.5); BUN 10 mg/dl (7-24); CHLORIDE 95 mmol/L (98-107); POTASSIUM 4.1 mmol/L (3.5-5.1); SODIUM 134 mmol/L (136-145)
[2017-07-13 08:12] LABS: ALKALINE PHOSPHATASE 76 U/L (45-117); CREATININE 0.91 mg/dL (0.70-1.30); SGOT/AST 15 IU/L (3-35); SGPT/ALT 17 U/L (12-78); TOTAL PROTEIN 7.2 gm/dL (6.4-8.2)
[2017-07-13 08:30] LABS: TOTAL CELLS COUNTED 100 #CELLS
[2017-07-13 08:31] LABS: PLATELET SUFFICIENCY NORMAL (NORMAL)
[2017-07-13 12:00] VITALS: BP 154/96
[2017-07-13 16:00] VITALS: BP 156/96
[2017-07-13 20:00] VITALS: BP 150/78
[2017-07-14] VITALS: BP 164/82
[2017-07-14 08:00] VITALS: BP 155/100
[2017-07-14] MEDS ORDERED: DOXYCYCLINE MO100 M1 PO (08:23)
[2017-07-14] MEDS ORDERED: NATURE'S BLEND100 M2 PO (08:24)
[2017-07-14] MEDS ORDERED: ATORVASTATIN CA80 M1 PO (08:24)
[2017-07-14] MEDS ORDERED: LISINOPRIL10 M1 PO (08:24)
[2017-07-14] MEDS ORDERED: VITAMIN D-32000 UNI1 PO (08:24)
[2017-07-14] MEDS ORDERED: LOPRESSOR25 MG PO (08:24)
[2017-07-14] MEDS ORDERED: ASPIRIN325 M2 PO (08:24)
[2017-07-14] MEDS ORDERED: THERA TABLET400 MCG PO (08:24)
[2017-07-14] MEDS ORDERED: LISINOPRIL20 MG PO (11:08)
[2017-07-14] MEDS ORDERED: ISOSORBIDE DINI30 MG PO (11:08)
== END 2017-07-14 13:01 | disposition home or self-care (01) | DRG 698 ==
LOC: ED 02:07 → EDHOLD 04:33 → 4E 04:33 → ICCU 04:54 → 4E 07-12 18:10
PROVIDERS: Emergency Medicine Emergency Medical Services; Family Medicine; Hospitalist; Student in an Organized Health Care Education/Training Program
DX: T83.511A Infection and inflammatory reaction due to indwelling urethral catheter, initial encounter (principal); A41.9 Sepsis, unspecified organism; I21.4 Non-ST elevation (NSTEMI) myocardial infarction; N17.0 Acute kidney failure with tubular necrosis; I16.1 Hypertensive emergency; E87.1 Hypo-osmolality and hyponatremia; C91.10 Chronic lymphocytic leukemia of B-cell type not having achieved remission; J98.11 Atelectasis; E78.1 Pure hyperglyceridemia; E66.9 Obesity, unspecified; F10.929 Alcohol use, unspecified with intoxication, unspecified; N39.0 Urinary tract infection, site not specified; E11.65 Type 2 diabetes mellitus with hyperglycemia; E87.8 Other disorders of electrolyte and fluid balance, not elsewhere classified; Y83.9 Surgical procedure, unspecified as the cause of abnormal reaction of the patient, or of later complication, without mention of misadventure at the time of the procedure; I25.10 Atherosclerotic heart disease of native coronary artery without angina pectoris; I10 Essential (primary) hypertension; Z96.643 Presence of artificial hip joint, bilateral; Z87.891 Personal history of nicotine dependence; Z82.0 Family history of epilepsy and other diseases of the nervous system; Z79.84 Long term (current) use of oral hypoglycemic drugs; Z86.73 Personal history of transient ischemic attack (TIA), and cerebral infarction without residual deficits; S00-T88 Injury, poisoning and certain other consequences of external causes; Z91.14 Patient's other noncompliance with medication regimen; Z68.35 Body mass index [BMI] 35.0-35.9, adult; Y92.89 Other specified places as the place of occurrence of the external cause

== ENCOUNTER 2017-07-16 12:41 | Emergency (ER) | payer MEDICARE ==
[~2017-07-16] VITALS: Ht 175.2 cm; Wt 109.8 kg
[~2017-07-16 12:41] MED LIST changes: +ASPIRIN325 M2 PO; +DOXYCYCLINE MO100 M1 PO; +ISOSORBIDE DINI30 MG PO; +LISINOPRIL20 MG PO; +LOPRESSOR25 MG PO; +NATURE'S BLEND100 M2 PO; +THERA TABLET400 MCG PO
[2017-07-16 14:37] LABS: HEMATOCRIT 37.7 % (42.0-52.0); HEMOGLOBIN 12.8 g/dl (14.0-18.0); MEAN CELL VOLUME 84.9 fl (80.0-94.0); MEAN CORPUSCULAR HGB 28.8 pg (27.0-31.0); MEAN PLATELET VOLUME 9.8 fl (9.6-12.3); PLATELET COUNT AUTOMATED 296 10*3/uL (130-400); RED BLOOD COUNT 4.44 10*6/uL (4.50-5.90); RED CELL DISTRI WIDTH 13.2 % (0-14.5); WHITE BLOOD COUNT 16.4 10*3/uL (4.8-10.8)
[2017-07-16 14:47] LABS: LIPASE 90 U/L (73-393)
[2017-07-16 14:48] LABS: ETHYL ALCOHOL < 3.0 mg/dl (<3)
[2017-07-16 14:52] LABS: ALBUMIN 3.3 gm/dl (3.1-4.5); ALKALINE PHOSPHATASE 77 U/L (45-117); BUN 20 mg/dl (7-24); CHLORIDE 100 mmol/L (98-107); CREATININE 1.08 mg/dL (0.70-1.30); POTASSIUM 4.3 mmol/L (3.5-5.1); SGOT/AST 11 IU/L (3-35); SGPT/ALT 18 U/L (12-78); SODIUM 138 mmol/L (136-145); TOTAL PROTEIN 7.7 gm/dL (6.4-8.2)
[2017-07-16 15:06] LABS: ATYPICAL LYMPHS 7 % (0-0); PLATELET SUFFICIENCY NORMAL (NORMAL); TOTAL CELLS COUNTED 100 #CELLS
[2017-07-16 15:22] LABS: BILIRUBIN NEGATIVE (NEGATIVE); BLOOD TRACE-LYSED (NEGATIVE); CLARITY SL CLOUDY (CLEAR); COLOR YELLOW (YELLOW); GLUCOSE 3+ (NEGATIVE); KETONE NEGATIVE (NEGATIVE); LEUKO ESTERASE NEGATIVE (NEGATIVE); NITRITE NEGATIVE (NEGATIVE); UROBILINOGEN 0.2 E.U./dl (0.2-1.0)
[2017-07-16 15:53] LABS: URIC ACID CRYSTALS 2+
[2017-07-16 15:54] LABS: WBC 0-2 wbc/hpf (0-5)
== END 2017-07-16 15:48 | disposition home or self-care (01) ==
LOC: ED 12:41
PROVIDERS: Nurse Practitioner Family
DX: R10.32 Left lower quadrant pain (principal); F17.200 Nicotine dependence, unspecified, uncomplicated

== ENCOUNTER → 2017-08-17 | Outpatient (CLI) | payer MEDICARE ==
[2017-08-17 16:05] LABS: HEMOGLOBIN 14.8 g/dl (14.0-18.0); MEAN CELL VOLUME 84.8 fl (80.0-94.0); MEAN CORPUSCULAR HGB 29.2 pg (27.0-31.0); MEAN CORPUSCULAR HGB CONC 34.4 g/dl (33.0-37.0); MEAN PLATELET VOLUME 10.7 fl (9.6-12.3); PLATELET COUNT AUTOMATED 192 10*3/uL (130-400); RED BLOOD COUNT 5.07 10*6/uL (4.50-5.90); RED CELL DISTRI WIDTH 13.1 % (0-14.5)
[2017-08-17 17:19] LABS: TOTAL CELLS COUNTED 100 #CELLS
[2017-08-17 17:20] LABS: PLATELET SUFFICIENCY NORMAL (NORMAL)
== END | disposition home or self-care (01) ==
LOC: LAB 15:08
PROVIDERS: Family Medicine
DX: J06.9 Acute upper respiratory infection, unspecified (principal)

== ENCOUNTER 2017-09-25 12:08 | Inpatient (IN) | payer MEDICARE, MEDICAID ==
[~2017-09-25] VITALS: Ht 175.3 cm; Wt 105.2 kg
[2017-09-25] VITALS (41 sets, daily range): BP systolic 48–110; BP diastolic 00–75
--- NOTE | ~2017-09-25 | CON ---
[place], [place] REPORT OF CONSULTATION [id number] UN[facility] #: [id number] ROOM: 528 DOCTOR: LOC THOMPSON MD BIRTHDATE: [birth year] DOS: 09/26/2017 REASON FOR CONSULTATION: Chest pain and mild elevation in troponin. HISTORY OF PRESENT ILLNESS: The patient is a 62-year-old man who has a history of type 2 diabetes mellitus, on oral therapy, atherosclerotic heart disease, chronic lymphocytic leukemia, and prostatic hypertrophy who was recently hospitalized in July 2017 after he presented intoxicated, hypothermic, and with an elevated troponin. Stress test at that time showed circumflex distribution ischemia. The amount of myocardium at risk was not large and it was felt that he could be managed medically. The patient presented yesterday after feeling poorly for a few weeks. He states that he believes that he has had a viral syndrome. His appetite has been poor and he has not been eating or drinking much. He believes that he has lost about 12 pounds in the last several weeks. He was seen at his primary physician's office, Dr. Valdivia, where his blood sugar was over 500. He was directed to the emergency room. In the emergency room, he complained of left lower rib pain, which he states that he has had for some time since he fell on the ice a few months ago. He was also noted to be hypotensive. On admission, his sodium was 135 with a BUN of 25, a creatinine of 1.6, and sugar of 461. His sugar was treated and he was given several liters of IV fluids. His blood pressure increased and he felt better. White count was elevated the entire time; however, he does have a history of chronic lymphocytic leukemia and his white count is not a reliable indication of systemic infection. Serial troponin levels were mildly elevated at 0.060 on admission with subsequent levels of 0.046, 0.054 and 0.057 obtained. There was no diagnostic rise and fall in his troponin level to suggest an acute coronary event and his electrocardiograms did not show any acute ST changes. We were asked to assist in his assessment and care. Currently, he feels well. He is being stepped down from the ICU to telemetry room and has told me that he is anxious to be discharged within the next day or so. PAST MEDICAL HISTORY: Includes: 1. Type 2 diabetes mellitus. 2. Essential hypertension. 3. Coronary artery disease documented by noninvasive imaging 07/13/2017. He was found to have ischemia in the distribution of the circumflex coronary artery with overall normal left ventricular systolic function and an ejection fraction of 56%. There were no high risk findings, the patient was managed medically. 4. Chronic lymphocytic leukemia. 5. Hospitalization July 2017 with acute on chronic alcohol intoxication and hypothermia, with type 2 myocardial injury documented. 6. Benign prostatic hypertrophy with bladder outlet obstruction. 7. Status post transurethral prostatectomy with secondary neurogenic bladder. 8. Suprapubic catheter for bladder drainage, removed August 2017. 9. History of recurrent urinary tract infections. REVIEW OF SYSTEMS: The patient denies diplopia or loss of vision. He did note some confusion and inappropriate behavior when his sugar was elevated, but [place], [place] REPORT OF CONSULTATION NAME: RAMSEY LEON UNIT #: [id number] ROOM: 528 DOCTOR: LOC THOMPSON MD BIRTHDATE: [birth year] denied any focal weakness. He denied syncope. He has had some weakness and lightheadedness. He has also had generalized malaise, anorexia and weight loss over the last month or two. He has had no nausea, vomiting or diarrhea, but he has had poor oral intake. He denies any focal weakness. He has had tenderness and pain over his left lower ribs, which he attributes to falling and injuring his chest a month or two ago. He denies bleeding from any site. He denies any peripheral edema. He does have some numbness and tingling in his feet. The remainder of the review of systems is negative except as noted above. SOCIAL HISTORY: The patient does have a history of alcohol abuse. He is a former smoker and has a history of marijuana use. FAMILY HISTORY: The patient's mother from complications of Alzheimer disease, his father of unknown causes. MEDICATIONS: Prior to admission included aspirin 325 mg daily, atorvastatin 80 mg daily, vitamin D 2000 units daily, cyclobenzaprine 10 mg every 8 hours, glyburide 3 mg p.o. twice a day, isosorbide mononitrate 30 mg daily, lisinopril 20 mg daily, metformin 1000 twice a day, metoprolol 25 mg twice a day, multivitamin with folic acid 1 tablet daily, and thiamine 100 mg daily. ALLERGIES: He has no known drug allergies. PHYSICAL EXAMINATION: GENERAL: The patient is a well-nourished white male who is awake, alert and oriented. VITAL SIGNS: Pulse is 76 and regular, blood pressure is 118/61. He is afebrile. He weighs 105.2 kg and has a body mass index of 34.3. HEENT: Normocephalic and atraumatic. Extraocular muscles are intact. Sclerae are clear. Pupils equal, round and react to light. The oral mucosa is moist. Tongue is midline. NECK: Supple. He has no jugular distention. Carotids are full. I heard no bruits. He had no neck or supraclavicular masses. LUNGS: Respirations are unlabored. His chest is clear to auscultation and percussion. He has no presacral edema or chest wall tenderness. CARDIOVASCULAR: His heart has a regular rhythm. He has a fourth heart sound, but no third heart sound or murmur. The PMI is not displaced. He has no precordial heave, lift or thrill. ABDOMEN: Soft and normally active without masses, organomegaly or bruits. EXTREMITIES: Showed no edema. Peripheral pulses are diminished, but palpable in the feet. LABORATORY DATA: I reviewed his electrocardiogram, which shows sinus rhythm with nonspecific ST and T-wave changes. No acute ST changes are seen. IMPRESSIONS: 1. Hospitalization with elevated sugar, dehydration and hypotension. Consider diabetic nonketotic hyperosmolar state. The patient responded well to fluid resuscitation. 2. Mild elevation in troponin. The patient does not have a diagnostic rise and [place], [place] REPORT OF CONSULTATION NAME: RAMSEY LEON Susan UNIT #: [id number] ROOM: 528 DOCTOR: LOC THOMPSON MD BIRTHDATE: [birth year] fall pattern in his troponin level to suggest an acute coronary event. Most likely this was a type 2 myocardial injury caused by hyperglycemia and hypotension. 3. Probable coronary artery disease as documented by recent noninvasive testing. 4. Chronic lymphocytic leukemia. 5. Bladder outlet obstruction and possible urinary tract infection. PLAN: We will resume a low dose of the patient's beta abdoul and continue to observe him in the hospital as he increases his ambulation. If he does have symptoms of exertional pain over the next few days, we will discuss with him the possibility of catheterization, but at this point based on his stress test and history, most likely medical therapy is the most appropriate for him. I thank the hospitalist physicians for asking our advice regarding his care. LOC THOMPSON MD CM:CONSTR:REPORT OF CONSULTATION 1350 09/28/17 1610 interface
--- NOTE | ~2017-09-25 | PR ---
[place], [place] PROGRESS NOTE NAME: [facility]ON [facility] [id number] UNIT #: [id number] ROOM: 528 DOCTOR: LOC THOMPSON MD BIRTHDATE: [birth year] DOS: 09/27/2017 SUBJECTIVE: The patient was seen at his bedside today 09/27/2017. His sugars are coming under control. He has had some nausea and indigestion today, but has not vomited. He was given Zofran earlier and feels somewhat better. The nurses are still having considerable problems with his leaking from a urostomy stoma. He does have some left lateral chest pain, but states that it worsens with palpation and he relates it to a recent fall on the ice where he bruised his ribs. PHYSICAL EXAMINATION: VITAL SIGNS: Today, his pulse is 72 and regular, blood pressure is 157/96. He is afebrile. NECK: Supple. He has no jugular distention. Carotids are full. LUNGS: Respirations are unlabored. His chest is clear anteriorly and laterally. HEART: Has a regular rhythm. He has a fourth heart sound, but no third heart sound or murmur. The PMI is not displaced. ABDOMEN: Soft and normally active without masses, organomegaly or bruits. EXTREMITIES: Showed no edema. Peripheral pulses are diminished, but palpable in the feet. IMPRESSION: 1. Diabetes out of control. 2. Mild elevation in troponin. The patient did not have a diagnostic rise and fall pattern to suggest an acute coronary event. Most likely, this represents a type 2 myocardial injury caused by hyperglycemia and hypotension. 3. Probable coronary artery disease as documented by recent noninvasive testing. 4. Chronic lymphocytic leukemia. 5. Bladder outlet obstruction with probable urinary tract infection. PLAN: I will increase his beta abdoul slightly and recheck an EKG and TSH. As noted, if he continues to have chest pain and there is a concern regarding angina, we will discuss with him the possibility of catheterization, although I think that medical therapy is probably the best course for him at this time. I thank the hospitalist physicians for asking our advice regarding his care. [place], [place] PROGRESS NOTE NAME: RAMSEY LEON Susan UNIT #: [id number] ROOM: 528 DOCTOR: LOC THOMPSON MD BIRTHDATE: [birth year] LOC THOMPSON MD CM:PNTRANS [id number] LOC THOMPSON MD [id number]/27/[id number] interface
[2017-09-25 12:55] LABS: HEMOGLOBIN 12.7 g/dl (14.0-18.0); MEAN CELL VOLUME 83.7 fl (80.0-94.0); MEAN CORPUSCULAR HGB 28.7 pg (27.0-31.0); MEAN CORPUSCULAR HGB CONC 34.3 g/dl (33.0-37.0); MEAN PLATELET VOLUME 9.9 fl (9.6-12.3); PLATELET COUNT AUTOMATED 296 10*3/uL (130-400); RED BLOOD COUNT 4.42 10*6/uL (4.50-5.90); RED CELL DISTRI WIDTH 13.5 % (0-14.5); WHITE BLOOD COUNT 14.4 10*3/uL (4.8-10.8)
[2017-09-25 13:15] LABS: ALBUMIN 3.3 gm/dl (3.1-4.5); CREATININE 1.6 mg/dL (0.70-1.30); POTASSIUM 4.4 mmol/L (3.5-5.1); TOTAL PROTEIN 7.2 gm/dL (6.4-8.2)
[2017-09-25 13:20] LABS: PLATELET SUFFICIENCY NORMAL (NORMAL); TOTAL CELLS COUNTED 100 #CELLS
[2017-09-25] MEDS ORDERED: CYCLOBENZAPRINE10 MG PO (16:11)
[2017-09-25] MEDS ORDERED: IMDUR SA30 MG PO (16:12)
[2017-09-25] MEDS ORDERED: GLYBURIDE MICRON3 MG PO (16:15)
[2017-09-25 20:25] LABS: BILIRUBIN NEGATIVE (NEGATIVE); BLOOD 2+ (NEGATIVE); CLARITY SL CLOUDY (CLEAR); COLOR YELLOW (YELLOW); GLUCOSE 2+ (NEGATIVE); KETONE NEGATIVE (NEGATIVE); LEUKO ESTERASE 2+ (NEGATIVE); NITRITE POSITIVE (NEGATIVE); PH 5.5 (5.0-9.0); UROBILINOGEN 0.2 E.U./dl (0.2-1.0)
[2017-09-25 20:53] LABS: WBC TNTC wbc/hpf (0-5)
[2017-09-26] VITALS (37 sets, daily range): BP systolic 85–152; BP diastolic 48–82
[2017-09-26 05:49] LABS: ALBUMIN 2.9 gm/dl (3.1-4.5); BUN 20 mg/dl (7-24); CHLORIDE 107 mmol/L (98-107); CREATININE 1.06 mg/dL (0.70-1.30); PHOSPHOROUS 3.6 mg/dL (2.5-4.9); POTASSIUM 3.8 mmol/L (3.5-5.1); SGOT/AST 12 IU/L (3-35); SGPT/ALT 13 U/L (12-78); SODIUM 141 mmol/L (136-145); TOTAL PROTEIN 6.3 gm/dL (6.4-8.2)
[2017-09-26 05:56] LABS: ALKALINE PHOSPHATASE 68 U/L (45-117); FREE T4 0.95 ng/dl (0.76-1.46); THYROID STIM HORMONE (HS) 0.936 uIU/ml (0.358-4.75)
[2017-09-26 05:58] LABS: TROPONIN I 0.057 ng/ml (<0.045)
[2017-09-26 06:01] LABS: HEMATOCRIT 34.4 % (42.0-52.0); HEMOGLOBIN 11.4 g/dl (14.0-18.0); MEAN CELL VOLUME 86.2 fl (80.0-94.0); MEAN CORPUSCULAR HGB 28.6 pg (27.0-31.0); MEAN CORPUSCULAR HGB CONC 33.1 g/dl (33.0-37.0); MEAN PLATELET VOLUME 11.1 fl (9.6-12.3); PLATELET COUNT AUTOMATED 246 10*3/uL (130-400); RED BLOOD COUNT 3.99 10*6/uL (4.50-5.90); RED CELL DISTRI WIDTH 14.1 % (0-14.5); WHITE BLOOD COUNT 13.9 10*3/uL (4.8-10.8)
[2017-09-26 06:24] LABS: ACT PARTIAL THROMBO TIME 23.9 SECONDS (20.8-31.5); INTERNATIONAL NORM RATIO 1.1 (2.0-3.5)
[2017-09-26 07:02] LABS: BURR CELLS MODERATE; PLATELET SUFFICIENCY NORMAL (NORMAL); TOTAL CELLS COUNTED 100 #CELLS
[2017-09-27] VITALS: BP 146/89
[2017-09-27 06:42] LABS: HEMATOCRIT 35.9 % (42.0-52.0); HEMOGLOBIN 12.2 g/dl (14.0-18.0); MEAN CELL VOLUME 85.3 fl (80.0-94.0); MEAN PLATELET VOLUME 10.4 fl (9.6-12.3); NUCLEATED RED BLOOD CELL 0.1 % (0.0-0.0); PLATELET COUNT AUTOMATED 254 10*3/uL (130-400); RED BLOOD COUNT 4.21 10*6/uL (4.50-5.90); RED CELL DISTRI WIDTH 13.9 % (0-14.5); WHITE BLOOD COUNT 13.5 10*3/uL (4.8-10.8)
[2017-09-27 07:07] LABS: ALBUMIN 2.7 gm/dl (3.1-4.5); ALKALINE PHOSPHATASE 70 U/L (45-117); BUN 11 mg/dl (7-24); CHLORIDE 104 mmol/L (98-107); CREATININE 0.83 mg/dL (0.70-1.30); POTASSIUM 3.7 mmol/L (3.5-5.1); SGOT/AST 12 IU/L (3-35); SGPT/ALT 12 U/L (12-78); SODIUM 138 mmol/L (136-145); TOTAL PROTEIN 6.2 gm/dL (6.4-8.2)
[2017-09-27 07:36] LABS: PLATELET SUFFICIENCY NORMAL (NORMAL); TOTAL CELLS COUNTED 100 #CELLS
[2017-09-27 08:00] VITALS: BP 142/81
[2017-09-27 12:00] VITALS: BP 157/86
[2017-09-27 16:00] VITALS: BP 157/96
[2017-09-27 20:00] VITALS: BP 144/81
[2017-09-28] VITALS: BP 147/86
[2017-09-28 06:36] LABS: HEMATOCRIT 38.1 % (42.0-52.0); MEAN CORPUSCULAR HGB CONC 34.1 g/dl (33.0-37.0); MEAN PLATELET VOLUME 10.5 fl (9.6-12.3); PLATELET COUNT AUTOMATED 301 10*3/uL (130-400); RED BLOOD COUNT 4.48 10*6/uL (4.50-5.90)
[2017-09-28 07:08] LABS: BASOPHILS 1 % (0-1); BURR CELLS FEW; TOTAL CELLS COUNTED 100 #CELLS
[2017-09-28 07:09] LABS: PLATELET SUFFICIENCY NORMAL (NORMAL)
[2017-09-28 08:00] VITALS: BP 161/98
[2017-09-28] MEDS ORDERED: CEFTRIAXONE1 GM IJ (09:24)
[2017-09-28] MEDS ORDERED: Insulin Lispro, Reco SC (09:24)
== END 2017-09-28 12:12 | disposition short-term general hospital (02) | DRG 682 ==
LOC: ED 12:08 → EDHOLD 14:41 → 5E 14:41 → ICCU 14:54 → 5E 09-26 13:37
PROVIDERS: Emergency Medicine; Internal Medicine; Internal Medicine Hospice and Palliative Medicine
DX: N17.0 Acute kidney failure with tubular necrosis (principal); E11.00 Type 2 diabetes mellitus with hyperosmolarity without nonketotic hyperglycemic-hyperosmolar coma (NKHHC); C91.10 Chronic lymphocytic leukemia of B-cell type not having achieved remission; E11.649 Type 2 diabetes mellitus with hypoglycemia without coma; I95.9 Hypotension, unspecified; E44.1 Mild protein-calorie malnutrition; N13.30 Unspecified hydronephrosis; E87.1 Hypo-osmolality and hyponatremia; I25.110 Atherosclerotic heart disease of native coronary artery with unstable angina pectoris; N39.0 Urinary tract infection, site not specified; N13.8 Other obstructive and reflux uropathy; E66.01 Morbid (severe) obesity due to excess calories; D64.9 Anemia, unspecified; R74.8 Abnormal levels of other serum enzymes; I10 Essential (primary) hypertension; R31.9 Hematuria, unspecified; E55.9 Vitamin D deficiency, unspecified; M10.069 Idiopathic gout, unspecified knee; Z96.643 Presence of artificial hip joint, bilateral; N40.1 Benign prostatic hyperplasia with lower urinary tract symptoms; E86.0 Dehydration; Z86.73 Personal history of transient ischemic attack (TIA), and cerebral infarction without residual deficits; Z79.899 Other long term (current) drug therapy; Z79.82 Long term (current) use of aspirin; I25.2 Old myocardial infarction; Z87.440 Personal history of urinary (tract) infections; Z87.891 Personal history of nicotine dependence; Z81.8 Family history of other mental and behavioral disorders; Z98.890 Other specified postprocedural states; Z90.79 Acquired absence of other genital organ(s); Z68.34 Body mass index [BMI] 34.0-34.9, adult

== ENCOUNTER → 2017-12-31 | Outpatient (CLI) | payer OTHER ==
[~2017-12-31] MED LIST changes: +CYCLOBENZAPRINE10 MG PO; +GLYBURIDE MICRON3 MG PO; +IMDUR SA30 MG PO; +Insulin Lispro, Reco SC
[2017-12-31 11:05] LABS: HEMATOCRIT 43.5 % (42.0-52.0); HEMOGLOBIN 14.1 g/dl (14.0-18.0); MEAN CELL VOLUME 85.6 fl (80.0-94.0); MEAN CORPUSCULAR HGB 27.8 pg (27.0-31.0); MEAN CORPUSCULAR HGB CONC 32.4 g/dl (33.0-37.0); MEAN PLATELET VOLUME 10.2 fl (9.6-12.3); PLATELET COUNT AUTOMATED 254 10*3/uL (130-400); RED BLOOD COUNT 5.08 10*6/uL (4.50-5.90); RED CELL DISTRI WIDTH 13.4 % (0-14.5); WHITE BLOOD COUNT 13.8 10*3/uL (4.8-10.8)
[2017-12-31 11:27] LABS: BILIRUBIN, DIRECT < 0.1 mg/dL (0.0-0.2); BUN 19 mg/dl (7-24); CHLORIDE 107 mmol/L (98-107); CHOLESTEROL 168 mg/dL (<200); CREATININE 1.27 mg/dL (0.70-1.30); HDL CHOLESTEROL 38 mg/dl (40-60); LDL CHOLESTEROL 97 mg/dL (9-159); POTASSIUM 4.1 mmol/L (3.5-5.1); SGOT/AST 9 IU/L (3-35); SGPT/ALT 17 U/L (12-78); SODIUM 142 mmol/L (136-145); THYROXINE (T4) TOTAL 7.6 ug/dl (4.5-12.1); TOTAL PROTEIN 8.6 gm/dL (6.4-8.2); TRIGLYCERIDES 166 mg/dl (<150); VLDL CHOLESTEROL 33 mg/dL (6-40)
[2017-12-31 11:33] LABS: ALKALINE PHOSPHATASE 70 U/L (45-117)
[2017-12-31 12:13] LABS: BASOPHILS 1 % (0-1); TOTAL CELLS COUNTED 100 #CELLS
[2017-12-31 12:14] LABS: ACANTHOCYTES FEW; BURR CELLS FEW; PLATELET SUFFICIENCY NORMAL (NORMAL)
[2017-12-31 12:15] LABS: ROULEAUX SLIGHT
== END | disposition home or self-care (01) ==
LOC: LAB 10:11
PROVIDERS: Family Medicine
DX: I25.10 Atherosclerotic heart disease of native coronary artery without angina pectoris (principal); E55.9 Vitamin D deficiency, unspecified; E11.9 Type 2 diabetes mellitus without complications; I10 Essential (primary) hypertension; R39.0 Extravasation of urine; R35.0 Frequency of micturition; R97.20 Elevated prostate specific antigen [PSA]